=== PATIENT | female | born 1960 | race American Indian/Alaskan Native ===

== ENCOUNTER 2018-06-10 09:31 | Day surgery (SDC) | payer OTHER ==
[2018-06-10] MEDS ORDERED: NACL 0.9% 1000 ML 1,000 ML IV SCH (11:00)
--- NOTE | 2018-06-10 11:38 | Anesthesia Day of Surgery ---
Anesthesia Day of Surgery - Day of Surgery Patient Examined: Yes Patient H&P Reviewed: Yes Patient is NPO: Yes
--- NOTE | 2018-06-10 11:38 | Anesthesia Consultation ---
Anesthesia Consult and Med Hx Date of service: 06/10/18 - Airway Anesthetic Teeth Evaluation: Good ROM Head & Neck: Adequate Mental/Hyoid Distance: Adequate Mallampati Class: Class II Intubation Access Assessment: Probably Good - Pulmonary Exam CTA: Yes - Cardiac Exam Cardiac Exam: RRR - Pre-Operative Health Status ASA Pre-Surgery Classification: ASA2 Proposed Anesthetic Plan: MAC - Pulmonary Hx Smoking: Yes
[2018-06-10] MEDS ORDERED: DIPRIVAN 10 MG/ML IV ONE ×2 (12:23)
--- NOTE | 2018-06-10 12:46 | Discharge Summary ---
Short Stay Discharge Plan Activity: advance as tolerated Weight Bearing Status: Weight Bear as Tolerated Diet: regular Follow up with: LYUBOV NAVAS MD [Primary Care Provider] - 7 Days
--- NOTE | 2018-06-10 12:46 | Operative Report ---
Operative Report Operative Report: Date of procedure: 06/10/2018 Procedure: Colonoscopy with multiple Hot biopsy Polypectomies. Attending physician: South Gordon MD Post Exchange Manager: South Gordon MD Indication: Patient is a 58-year-old female who presents for screening colonoscopy. Patient has a past history of colon polyps. The colonoscopy serves to evaluate patient for colorectal cancer screening. Consent: Informed consent was obtained after advising the patient and family regarding nature of this procedure, its indications, potential benefits as well as possible complications including but not limited to bleeding perforation and adverse reaction to medication, infection as well as other cardiopulmonary complications. An informed written and verbal consent was then obtained after due opportunity was provided for questions and answers. Monitoring: Patient was monitored continuously with pulse oximetry and electrocardiographic recordings as well as blood pressure recordings. Vital signs remained stable throughout this procedure with no untoward events. Preoperative assessment: Patient was assessed immediately prior to this procedure for capacity to tolerate monitored anesthesia care and moderate sedation as well as general anesthesia. Patient's ASA classification is 2, Mallampati class is 2, Hyomental distance is 3. Instrument: [employer] video colonoscope Medications: Propofol given intravenously in divided doses. For details please refer to anesthesia records. Description of procedure: Patient was placed in the left lateral decubitus position after achieving sedation, a digital rectal examination was performed following which the colonoscope was introduced into the anal verge and advanced to the cecum which was identified by the cecal valve, the appendiceal orifice, as well as by the cecal strap and direct transillumination. The colonoscope was subsequently withdrawn with careful inspection of all mucosal surfaces. Patient tolerated this procedure well and was subsequently taken to the recovery room. The following findings were noted. Findings: Patient had diverticulosis involving the sigmoid and descending colon. Patient had a diminutive polyp measuring about 4 mm in the sigmoid colon which was hot biopsy polypectomy. There was another 4 mm polyp in the descending colon which was again removed by hot biopsy polypectomy. The rest of the colon to the cecum was normal. On the retroflex view at the anal verge, patient had prominent internal hemorrhoids. Impression: Diminutive Descending colon polyp status post hot biopsy polypectomy. Diminutive Sigmoid colon polyp status post hot biopsy polypectomy Mild diverticulosis. Prominent Internal hemorrhoids. Plan: High-fiber diet. Follow pathology report Repeat colonoscopy in 5 years.
[2018-06-10 13:04] VITALS: BP 114/74
== END 2018-06-10 09:32 | disposition home or self-care (01) ==
LOC: GIO 09:31
PROVIDERS: ATTEND Internal Medicine Gastroenterology
DX: Z12.11 Encounter for screening for malignant neoplasm of colon (principal); K63.5 Polyp of colon; K57.30 Diverticulosis of large intestine without perforation or abscess without bleeding; K64.8 Other hemorrhoids; F17.200 Nicotine dependence, unspecified, uncomplicated
CPT/HCPCS: 45384; 88305; J2704; J7030